=== PATIENT | male | born 1980 | race Caucasian/White ===

== ENCOUNTER 2025-02-17 20:49 | Emergency (ER) | payer OTHER, SELFPAY ==
[2025-02-17 21:47] VITALS: BP 167/114; PULSE 106; RESP 16; TEMP 36.5; O2SAT 98; BMI 23.6
--- OUTSIDE RECORDS SUMMARY | 2025-02-17 22:14 | XMS_ITS | Clinical Summary ---
Author Organization [facility] Address [address] 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 08/08/2021 Active levETIRAcetam (Keppra) 500 MG tablet Take 500 mg by mouth twice a day. 03/01/2017 Active albuterol 108 (90 Base) MCG/ACT inhaler Inhale 2 puffs if needed. 09/27/2018 Active gabapentin (Neurontin) 800 MG tablet Take 800 mg by mouth 3 (three) times a day. 09/06/2021 Active nicotine (Nicoderm CQ) 21 MG/24HR patch Place 1 patch on the skin 1 (one) time each day at the same time. 30 patch 10/13/2021 Active nicotine polacrilex (Commit) 4 MG lozenge Dissolve 1 lozenge (4 mg total) in the mouth every 2 (two) hours if needed for smoking cessation. 100 lozenge 10/13/2021 Active hydroCHLOROthia zide (HYDRODiuril) 25 MG tablet Take 25 mg by mouth 1 (one) time each day. Active gabapentin (Neurontin) 100 MG capsule Take 1 capsule (100 mg total) by mouth 3 (three) times a day. 42 capsule 10/18/2021 Active methocarbamol (Robaxin) 750 MG tablet Take 1 tablet (750 mg total) by mouth every 6 (six) hours if needed for muscle spasms. 50 tablet 10/18/2021 Active senna-docusate sodium (Senokot-S) 8.6-50 MG tablet Take 1 tablet by mouth 2 (two) times a day. 28 tablet 10/18/2021 Active amitriptyline (Elavil) 50 MG tablet Take 1 tablet (50 mg total) by mouth every night. 30 tablet 1 12/29/2021 Active Active Problems Problem Noted Date Diagnosed Date Obesity (BMI 35.0-39.9 without comorbidity) 09/30 Achilles tendon rupture, right, initial encounte r 10/13/2021 Overview (10/13/2021): Added automatically from request for surgery [id number] Family History Medical History Relation Name Comments Melanoma Mother Relation Name Status Comments Mother Social History Tobacco Use Types Packs/Day Years Used Date Smoking Tobacco: Every Day Smokeless Tobacco: Never Alcohol Use Standard Drinks/Week Comments No 0 (1 standard drink = 0.6 oz pur e alcohol) PHQ-2 Answer Date Recorded Patient Health Questionnaire-2 Score 0 10/13/2021 Sex and Gender Information Value Date Recorded Sex Assigned at Not on file Legal Sex Male 6:38 PM EDT Gender Identity Not on file Sexual Orientation Not on file Last Filed Vital Signs Vital Sign Reading Time Taken Comments Blood Pressure 133/80 06/24/2024 12:07 PM EST Pulse 89 06/24/2024 12:07 PM EST Temperature 36.3 C (97.4 F) 06/24/2024 12:07 PM EST Respiratory Rate 14 06/24/2024 12:07 PM EST Oxygen Saturation 97% 06/24/2024 12:07 PM EST Inhaled Oxygen Concentration - - Weight 114 kg (251 lb) 06/24/2024 10:47 AM EST Height 175.3 cm (5' 9 ) 06/24/2024 10:47 AM EST Body Mass Index 37.07 06/24/2024 10:47 AM EST Plan of Treatment Health Maintenance Due Date Last Done Comments [facility]-HIV Screening 1979 [facility]-Hepatitis C Screening 1979 [facility]-/Child/Adol SDOH Screenings 1979 [facility]-Obesity Intervention 12/27/1985 [facility]-Varicella Vaccines (1 of 2 - 13+ 2-dose series) 12/27/1992 [facility]- SDOH Screenings 12/27/1997 [facility]-Adult SDOH Screenings 12/27/1997 [facility]-Hepatitis B Vaccines (1 of 3 - 19+ 3-dose series) 12/27/1998 HPV Vaccines (1 - 3-dose SCD M series) 12/27/2006 [facility]-Depression Screening 10/13/2022 10/13/2021 [id number] Vaccine (2 - season) 2024 11/09/2020 CT Colonography 12/27/2024 Colonoscopy 12/27/2024 FIT-DNA 12/27/2024 FIT 12/27/2024 FOBT 12/27/2024 Sigmoidoscopy 12/27/2024 [facility]-Colorectal Cancer Screening 12/27/2024 [facility]-DTaP,Tdap,and Td Vaccine s (3 - Td or Tdap) 02/02/2025 02/02/2015, 09/08/1996 [facility]-Influenza Vaccine (#1) 03/02/202504/29, 05/31/2012 [facility]-Zoster Vaccines (1 of 2) 12/27/2029 [facility]-HIB Vaccines Aged Out No longer e ligible based on patient's age to complete this topic [facility]-Hepatitis A Vaccines Aged Out No longer eligible based on patient's age to complete this topic [facility]-IPV Vaccines Aged Out No longer e ligible based on patient's age to complete this topic [facility]-Pneumococcal Vaccine: Pediatrics (0 to 5 Years) and At-Risk Patients (6 to 49 Years) Aged Out No longer eligible b ased on patient's age to complete this topic [facility]-Rotavirus Vaccines Aged Out No lo nger eligible based on patient's age to complete this topic Medical Devices Implanted Type Area Dermatology Specialist Device Identifier Shelf Expiration Date Model / Serial / Lot Implant Scaffold Large - [id number] Implanted:Qty: 1 on 10/18/2021 by Angelo Gayle MD at [facility] Right: Foot [employer] [facility] ([id number] 03/02/2024 [id number] / / [id number] Insurance NA [employer] MEDICAID Care Teams Trailer Truck Driver Relationship Specialty Start Date End Date Chilo Navarro MD [address] [place] [address] PCP - General 11/03/21
--- OUTSIDE RECORDS SUMMARY | 2025-02-17 22:14 | XMS_ITS | Clinical Summary ---
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 Phone Unavailable Primary Care Provider Unavailabl e Allergies No known active allergies Medications diclofenac (VOLTAREN) 75 MG EC tablet Take 1 tablet by mouth 2 times daily for 7 days 14 tablet 09/22/2024 Active Social History Tobacco Use Types Packs/Day Years Used Date Smoking Tobacco: Every Day Cigarettes Tobacco Cessation:Ready to Q uit: Not Asked; Counseling Given: Not Answered Sex and Gender Information Value Date Recorded Sex Assigned at Not on file Legal Sex Male 8:55 AM EDT Gender Identity Not on file Sexual Orientation Not on file Last Filed Vital Signs Vital Sign Reading Time Taken Comments Blood Pressure 128/78 09/22/2024 9:07 AM EDT Pulse 95 09/22/2024 9:07 AM EDT Temperature 36.4 C (97.6 F) 09/22/2024 9:07 AM EDT Respiratory Rate 16 09/22/2024 9:07 AM EDT Oxygen Saturation 96% 09/22/2024 9:07 AM EDT Inhaled Oxygen Concentration - - Weight 123.7 kg (272 lb 9.6 oz) 09/22/2024 9:07 AM EDT Height 172.7 cm (5' 8 ) 09/22/2024 9:07 AM EDT Body Mass Index 41.45 09/22/2024 9:07 AM EDT Plan of Treatment Health Maintenance Due Date Last Done Comments Depression Screen 1991 Varicella vaccine (1 of 2 - 13+ 2-dose series) 12/27/1992 HIV screen 12/27/1994 Hepatitis C screen 12/27/1997 DTaP/Tdap/Td vaccine (1 - Tdap) 12/27/1998 Hepatitis B vaccine (1 of 3 - 19+ 3-dose series) 12/27/1998 Pneumococcal 0-49 years Vacc ine (1 of 2 - PCV) 12/27/1998 Diabetes screen 12/27/2014 Lipids 2019 COVID-19 Vaccine (1 - 2023-2 5 season) 2024 Colonoscopy 12/27/2024 Colorectal Cancer Screen 12/27/2024 FIT/FOBT: Average risk 12/27/2024 Fecal-DNA (Cologuard): Average risk 12/27/2024 Sigmoidoscopy/CT colonography 12/27/2024 Flu vaccine (#1) 01/30/2025 HPV vaccine (No Doses Required) Completed Hepatitis A vaccine Aged Out No longe r eligible based on patient's age to complete this topic Hib vaccine Aged Out No longer eligi ble based on patient's age to complete this topic Meningococcal (ACWY) vaccine Aged Out No longer eligible based on patient's age to complete this topic Meningococcal B vaccine Aged Out No l onger eligible based on patient's age to complete this topic Polio vaccine Aged Out No longer elig ible based on patient's age to complete this topic Insurance [employer]
[2025-02-17 22:56] LABS: Hematocrit 34.8 % (42.0-52.0); Hemoglobin 11.6 g/dL (14.1-18.0); Immature Granulocytes % 2.2 %; Mean Corpuscular HGB Conc 33.3 g/dL (31.8-35.4); Mean Corpuscular Hemoglobin 31.5 pg (27.0-31.2); Mean Corpuscular Volume 94.6 fl (80-94); Nucleated Red Blood Cells % 0 %; Platelet Count 348 K/mm3 (142-424); Red Blood Count 3.68 M/mm3 (4.60-6.20); Red Cell Distribution Width-SD 46.4 fL; White Blood Count 15.1 K/mm3 (4.8-10.8)
[2025-02-17 22:59] VITALS: PULSE 101; O2SAT 100
[2025-02-17 23:00] VITALS: PULSE 89; O2SAT 98
[2025-02-17 23:18] LABS: Alanine Aminotransferase 42 U/L (12-78); Albumin Level 3.9 g/dl (3.5-5.0); Albumin/Globulin Ratio 1.1 (1.1-1.8); Alkaline Phosphatase 61 U/L (38-126); Anion Gap 9.8 mEq/L (5-15); Aspartate Amino Transferase 36 U/L (17-59); Blood Urea Nitrogen 11 mg/dl (9-20); Calcium 8.9 mg/dl (8.4-10.2); Carbon Dioxide 27 mmol/L (22.0-30.0); Chloride 108 mmol/L (98-107); Creatinine Clearance Estimated 84 mL/min (50-200); Creatinine,Serum 1.10 mg/dl (0.66-1.25); Estimated Glomerular Filt Rate 72 ml/min (>60); GFR (African American) 88 ML/MIN (>60); Globulin 3.4 g/dL (1.3-3.2); Glucose 87 mg/dl (74-100); Potassium 3.8 mmoL/L (3.5-5.1); Sodium 141 mmol/L (136-145); Total Protein,Serum 7.3 g/dl (6.3-8.2)
[2025-02-17 23:34] LABS: Bilirubin,Total 0.1 mg/dl (0.2-1.3)
[2025-02-17] MEDS: DOXYCYCLINE HYCL 100 MG TABLET PO (23:59)
[2025-02-18 00:07] VITALS: BP 154/104; PULSE 93; RESP 16; TEMP 36.8; O2SAT 99
--- NOTE | 2025-02-18 00:10 | HMH.EDGENADL ---
Discharge Plan Disposition Patient Disposition: Left Against Medical Advice Referrals Follow up/Referrals: Jono Kenney PA [Primary Care Provider, Medical] - See instructions Clinical Impressions Clinical Impression: Left against medical advice Instructions Patient Instructions: DI for Laceration Repair Print Language Print Language: Wallisian Discharge ED Provider: Jared Irizarry General Adult HPI General Chief complaint: Wound/Laceration Stated complaint: Incision from shooting drugs with drainage Time Seen by Provider: 02/17/25 22:52 Mode of Arrival: Ambulatory Source of Information: Patient Description of Symptoms (Recalled from ER Triage Doc. by RN): Patient was seen [facility] for a wound he got when shooting up meth; said dressing hasn't been changed since sunday; would like it checked out; has not started ordered antibiotics yet History of Present Illness HPI narrative: Patient states that over a week ago, he was injecting meth into his left arm and missed. He went to [facility] 3 days ago and had an abscess drained on his left forearm and was admitted for IV antibiotics. He states that he was discharged earlier today but was told that he would need to follow-up with the surgeon. He was prescribed doxycycline but has not filled it yet. He states that the wound has been packed but appears grossly infected with stuff draining out of it. He denies any fevers but is worried the wound is still infected. Related Data Allergies Allergy/AdvReac Type Severity Reaction Status Date / Time No Known Allergies Allergy Verified 02/17/25 21:51 [facility] Disclaimer: The information contained in this section may have been updated after the patient was seen, as this information can be updated by other users. Social History Smoking Status: Current every day smoker alcohol intake: former current occupational status: employed Travel in the last 8 weeks?: None ROS Obtained: Yes Systems reviewed as appropriate & no additional complaints except as documented Physical Exam General General appearance: alert, in no apparent distress and anxious Head Head exam: atraumatic Eye Eye exam: Present normal appearance ENT ENT exam: Present normal external ear exam Neck Neck exam: Present full ROM Chest Chest inspection: Present symmetric chest wall rise Respiratory Respiratory exam: Present normal lung sounds bilaterally; Absent respiratory distress Cardiovascular Cardiovascular exam: Present regular rate and normal rhythm Abdominal Exam Abdominal exam: Present soft; Absent tenderness or guarding exam: Present deferred Extremities Exam Extremities exam: Present normal inspection Expanded Upper Extremity Exam Left: L/R Arms Bottom View:  1. Open incision, granulation tissue and purulent drainage with surrounding erythema and tenderness Back Exam Back exam: Present normal inspection Neurological Exam Neurological exam: Present alert and oriented X3 Psychiatric Psychiatric exam: Present normal affect Skin Skin exam: Present warm and dry Medical Decision Making Medical Records Screening: Per USPSTF and CDC recommendations, given the prevalence of disease in our region, it is our hospital?s policy to screen for HIV and viral Hepatitis for all patients aged 18 and over and those with ongoing risk factors. Sergo Inquiry Pt receiving controlled substance: No Vital Signs: 02/17/25 21:47 02/17/25 22:59 02/17/25 23:00 Temperature 97.7 F Temperature Source Oral Pulse Rate 101 H 89 Pulse Rate [Right Radial] 106 H Respiratory Rate 16 Blood Pressure Blood Pressure [Right Arm] 167/114 H Blood Pressure Mean [Right Arm] 131 Blood Pressure Source [Right Arm] Automatic Cuff Blood Pressure Position [Right Arm] Sitting 02 Sat by Pulse Oximetry 98 100 98 Oxygen Delivery Method Room Air 02/18/25 00:07 Temperature 98.2 F Temperature Source Pulse Rate 93 H Pulse Rate [Right Radial] Respiratory Rate 16 Blood Pressure 154/104 H Blood Pressure [Right Arm] Blood Pressure Mean [Right Arm] Blood Pressure Source [Right Arm] Blood Pressure Position [Right Arm] 02 Sat by Pulse Oximetry Oxygen Delivery Method Room Air Lab Data Lab Results 02/17/25 22:43: WBC 15.1 H, RBC 3.68 L, Hgb 11.6 L, Hct 34.8 L, MCV 94.6 H, MCH 31.5 H, MCHC 33.3, RDW 13.4, Plt Count 348, MPV 9.1, Neut % (Auto) 66.7, Lymph % (Auto) 24.4, Bladen % (Auto) 5.7, Eos % (Auto) 0.6, Baso % (Auto) 0.4, Neut # (Auto) 10.1 H, Lymph # (Auto) 3.7, Bladen # (Auto) 0.9, Eos # (Auto) 0.1, Baso # (Auto) 0.1, Sodium 141, Potassium 3.8, Chloride 108 H, Carbon Dioxide 27, Anion Gap 9.8, BUN 11, Creatinine 1.10, Estimated Creat Clear 84, Estimated GFR 72, Est GFR ( Amer) 88, Glucose 87, Lactate 1.2, Calcium 8.9, Total Bilirubin 0.1 L, AST 36, ALT 42, Alkaline Phosphatase 61, Total Protein 7.3, Albumin 3.9, Globulin 3.4 H, Albumin/Globulin Ratio 1.1 02/17/25 22:43 02/17/25 22:43 Orders (Tests/Meds): ED MEDICATIONS Discontinued Medications Generic Name Dose Route Start Last Admin Trade Name Tyson PRN Reason Stop Dose Admin Doxycycline Hyclate 100 mg 02/17/25 23:55 02/17/25 23:59 Doxycycline Hycl 100 Mg Tablet PO 02/17/25 23:56 100 mg ONCE ONE Administration Miscellaneous 1 each 02/17/25 23:15 Vancomycin Consult Request NOTAPPLIC 03/19/25 23:14 CONSULT PHARMACY BK ORDERS Category Date Time Status Consult Conference Assistant [CONS] Routine Cons 02/17/25 22:33 Active Complete Blood Count Auto Diff Stat Lab 02/17/25 22:43 Completed Comprehensive Metabolic Panel Stat Lab 02/17/25 22:43 Completed Lactic Acid Stat Lab 02/17/25 22:43 Completed Blood Culture Stat Micro 02/17/25 21:54 Ordered Medical Decision Narrative: Patient states that over a week ago, he was injecting meth into his left arm and missed. He went to [facility] 3 days ago and had an abscess drained on his left forearm and was admitted for IV antibiotics. He states that he was discharged earlier today but was told that he would need to follow-up with the surgeon. He was prescribed doxycycline but has not filled it yet. He states that the wound has been packed but appears grossly infected with stuff draining out of it. He denies any fevers but is worried the wound is still infected. On arrival, patient is hypertensive, tachycardic, afebrile, maintaining appropriate oxygen saturation on room air. Physical exam, as stated above, revealed an anxious appearing male in no respiratory distress. He is tachycardic. Left upper extremity shows an open incision with iodoform gauze within the wound. There does appear to be serosanguineous discharge emanating from the wound with surrounding erythema. The laceration itself measures approximately 4 cm in a vertical fashion along the volar forearm. The iodoform gauze was removed and revealed some mild purulence within the wound itself. This area is tender to touch. Differential diagnosis includes, but is not limited to: Sepsis, wound infection, cellulitis, abscess, among others. The most morbid conditions were considered and workup was based on these. Workup in the emergency department included: CT left arm with contrast, CBC, CMP, blood culture, lactic acid. Due to concern for sepsis, vancomycin was ordered. I discussed with patient that given his tachycardia in the setting of this infection, there is concern for sepsis he was initially agreeable to pursue CT imaging and IV antibiotics, however I was called back into the room he stated that he was just notified that his father is hospitalized at [facility] due to lung cancer and pneumonia and he does not wish to stay and would like to leave at this time. I discussed with him at length that there is concern he is septic secondary to his infection that will require continued IV antibiotics and possibly surgery depending on results of CT scan and it is highly recommended that he stay for completion of his workup and treatment and that the risk of leaving includes worsening infection to the arm, bloodstream infection and potentially . He was able to reiterate back to me that he is aware that he could possibly be septic and that this could kill him but notes that the only people that he has in his life are his significant other and his father and he wants to be with his father at this time. Given that he has not had any of antibiotics yet and is wanting to leave AGAINST MEDICAL ADVICE, will administer 100 mg of oral doxycycline. Patient did not receive any IV vancomycin prior to leaving the emergency department. He was given strict return precautions and demonstrated understanding. He then left the emergency department AGAINST MEDICAL ADVICE. Critical Care Critical Care Time Critical Care Time: No
--- NOTE | 2025-02-18 10:22 | PEERSUPPORT ---
Peer Support Note Patient Information Patient Information: DOS: 02/18/2025 Attempt to make contact with pt. No answer, left voicmail for pt to return phonecall.
== END 2025-02-18 00:11 | disposition left against medical advice (07) ==
LOC: ER 22:12
PROVIDERS: Emergency Provider Student in an Organized Health Care Education/Training Program; PCP Student in an Organized Health Care Education/Training Program
DX: L02.414 Cutaneous abscess of left upper limb (principal); R00.0 Tachycardia, unspecified; F17.210 Nicotine dependence, cigarettes, uncomplicated; F19.90 Other psychoactive substance use, unspecified, uncomplicated
CPT/HCPCS: 80053; 83605; 85025; 87040; 99283

== ENCOUNTER 2025-02-27 04:48 | Emergency (ER) | payer OTHER, SELFPAY ==
--- NOTE | 2025-02-27 04:55 | HMH.EDGENADL ---
Discharge Plan Disposition Patient Disposition: Xfer Other Condition: Good Prescriptions Prescriptions: New levetiracetam 1,000 mg tablet 1,000 mg PO BID 60 Days Qty: 120 0RF omeprazole 40 mg capsule,delayed release(DR/EC) 40 mg PO DAILY 56 Days Qty: 56 0RF clindamycin HCl [Cleocin HCl] 300 mg capsule 300 mg PO Q6H 5 Days Qty: 20 0RF Referrals Follow up/Referrals: Provider,Referral, MD [Primary Care Provider, Medical] - See instructions Activity Restrictions/Add. Instructions Additional Instructions/Restrictions: I have prescribed Clindamycin 300 mg 4 times daily for the next 5 days. I have also prescribed Keppra to be taken 1000 mg twice daily. I have also sent your omeprazole to the pharmacy. If you have any new or worsening symptoms please return. Clinical Impressions Clinical Impression: Drug use disorder, Encounter for wound re-check Print Language Print Language: Estonian Discharge ED Provider: Jay Soares General Adult HPI <Jay Soares MD - Last Filed: 02/27/25 06:48> General Chief complaint: Wound/Laceration Stated complaint: laceration L arm Time Seen by Provider: 02/27/25 04:55 History of Present Illness HPI narrative: 44-year-old male with history of epilepsy on Keppra, GERD, IV drug addiction presents for wound check and for rehab placement. He reports that he has an abscess that was lanced and he has been taking antibiotics for on his left arm. It is significantly improving, no longer painful, just itchy. Patient said he spoke with Ava Davidson, our social work/specialist employee labor relations, and he would like to go to rehab. He denies any chest pain abdominal pain shortness of breath or other symptoms at this time. He reports that he has not been taking his Keppra as prescribed. He is currently taking Keflex for his wound. Related Data Previous Rx's ?Medication ?Instructions ?Recorded clindamycin HCl 300 mg capsule 300 mg PO Q6H 5 days #20 caps 02/27/25 (Cleocin HCl) levetiracetam 1,000 mg tablet 1,000 mg PO BID 60 days #120 tabs 02/27/25 omeprazole 40 mg capsule,delayed 40 mg PO DAILY 8 weeks #56 caps 02/27/25 release Allergies Allergy/AdvReac Type Severity Reaction Status Date / Time No Known Allergies Allergy Verified 02/17/25 21:51 PFSH <Jay Soares MD - Last Filed: 02/27/25 06:48> [facility] Disclaimer: The information contained in this section may have been updated after the patient was seen, as this information can be updated by other users. Social History (Updated 02/18/25 @ 13:25 by Jared Irizarry MD) Smoking Status: Current every day smoker alcohol intake: former current occupational status: employed Travel in the last 8 weeks?: None Have you lived/traveled outside US in past 30 days?: No Contact w/someone who lives/traveled outside US past 30 days?: No Exposure to someone with infectious disease in past 14 days?: No Do you have a fever (greater than 100.4 F or 38 C)?: No Have you tested positive for COVID-19?: No Exposed to someone with COVID-19 in past 14 days?: No Do you have a sore throat?: No Do you have a cough?: No Do you have any weakness?: No Do you have any diarrhea?: No Are you experiencing any unusual bleeding?: No Do you have any muscle aches/pain?: No Do you have any abdominal pain?: No Are you experiencing loss of taste or smell?: No <Jay Soares MD - Last Filed: 02/27/25 06:48> ROS Obtained: Yes All systems reviewed & no additional complaints except as documented Physical Exam <Jay Soares MD - Last Filed: 02/27/25 06:48> General General appearance: alert and in no apparent distress Head Head exam: atraumatic and normocephalic Eye Eye exam: Present normal appearance, PERRL and EOMI ENT ENT exam: Present normal oropharynx and normal external ear exam Neck Neck exam: Present normal inspection and full ROM Chest Chest inspection: Present normal inspection and symmetric chest wall rise; Absent tenderness Respiratory Respiratory exam: Present normal lung sounds bilaterally; Absent respiratory distress Cardiovascular Cardiovascular exam: Present regular rate and normal rhythm Abdominal Exam Abdominal exam: Present soft; Absent distention, tenderness or guarding Extremities Exam Extremities exam: Present normal inspection; Absent edema or joint swelling Back Exam Back exam: Present normal inspection; Absent tenderness Neurological Exam Neurological exam: Present alert and oriented X3; Absent motor sensory deficit Psychiatric Psychiatric exam: Present normal affect and normal mood Skin Skin exam: Present warm, dry, normal color and other (Scabbed healing incision in the left forearm. No surrounding erythema or induration, no fluctuance, no evidence of infection) Lymphatic Lymphatic Findings: no adenopathy Medical Decision Making <Jay Soares MD - Last Filed: 02/27/25 06:48> Medical Records Medical records reviewed: Yes I reviewed the patient's medical records. Screening: Per USPSTF and CDC recommendations, given the prevalence of disease in our region, it is our hospital?s policy to screen for HIV and viral Hepatitis for all patients aged 18 and over and those with ongoing risk factors. Sergo Inquiry Pt receiving controlled substance: No Sergo was queried for this patient: No Vital Signs: 02/27/25 04:56 02/27/25 04:57 Temperature 98.0 F Temperature Source Oral Pulse Rate 93 H Pulse Rate [Right Radial] 89 Respiratory Rate 20 Blood Pressure 140/90 Blood Pressure [Right Arm] 140/90 Blood Pressure Mean [Right Arm] 106 Blood Pressure Source [Right Arm] Automatic Cuff Blood Pressure Position [Right Arm] Sitting 02 Sat by Pulse Oximetry 96 98 Oxygen Delivery Method Room Air Lab Data Lab results reviewed: Yes I reviewed the patient's lab results. Orders (Tests/Meds): ED MEDICATIONS Discontinued Medications Generic Name Dose Route Start Last Admin Trade Name Thomasq PRN Reason Stop Dose Admin Levetiracetam 1,000 mg 02/27/25 05:05 02/27/25 05:20 Levetiracetam 500 Mg Tablet PO 02/27/25 05:06 1,000 mg ONCE ONE Administration Nicotine 21 mg 02/27/25 07:33 02/27/25 07:39 Nicotine 21mg/24hr Patch TD 02/27/25 07:34 21 mg ONCE ONE Administration Pantoprazole Sodium 40 mg 02/27/25 05:02 02/27/25 05:20 Pantoprazole 40mg Tablet PO 02/27/25 05:03 40 mg ONCE ONE Administration ORDERS Category Date Time Status Consult Logging Truck Driver [CONS] Routine Cons 02/27/25 04:53 Active HIV Combo Stat Lab 02/27/25 05:01 Ordered Hepatitis C Ab Qual. W/ RFX Stat Lab 02/27/25 05:01 Ordered Medical Decision Narrative: 44-year-old male with history of epilepsy, IV drug use presents for wound check and possible drug rehab placement. History was obtained via interactive discussion with patient. On arrival, patient is [afebrile, hemodynamically stable, satting appropriately, alert, oriented x4, GCS 15], moving all extremities spontaneously. Full physical exam performed and significant for healing abscess site, no evidence of current infection. Patient was given his home Keppra and Prilosec. We are waiting our specialist employee labor relations for further guidance. At this time care handed off to oncoming physician. <Chris Greene, DO - Last Filed: 02/27/25 09:34> Vital Signs: 02/27/25 04:56 02/27/25 04:57 Temperature 98.0 F Temperature Source Oral Pulse Rate 93 H Pulse Rate [Right Radial] 89 Respiratory Rate 20 Blood Pressure 140/90 Blood Pressure [Right Arm] 140/90 Blood Pressure Mean [Right Arm] 106 Blood Pressure Source [Right Arm] Automatic Cuff Blood Pressure Position [Right Arm] Sitting 02 Sat by Pulse Oximetry 96 98 Oxygen Delivery Method Room Air Orders (Tests/Meds): ED MEDICATIONS Discontinued Medications Generic Name Dose Route Start Last Admin Trade Name Freq PRN Reason Stop Dose Admin Levetiracetam 1,000 mg 02/27/25 05:05 02/27/25 05:20 Levetiracetam 500 Mg Tablet PO 02/27/25 05:06 1,000 mg ONCE ONE Administration Nicotine 21 mg 02/27/25 07:33 02/27/25 07:39 Nicotine 21mg/24hr Patch TD 02/27/25 07:34 21 mg ONCE ONE Administration Pantoprazole Sodium 40 mg 02/27/25 05:02 02/27/25 05:20 Pantoprazole 40mg Tablet PO 02/27/25 05:03 40 mg ONCE ONE Administration ORDERS Category Date Time Status Consult Logging Truck Driver [CONS] Routine Cons 02/27/25 04:53 Active HIV Combo Stat Lab 02/27/25 05:01 Ordered Hepatitis C Ab Qual. W/ RFX Stat Lab 02/27/25 05:01 Ordered Medical Decision Narrative: 44-year-old male with history of epilepsy, IV drug use presents for wound check and possible drug rehab placement. History was obtained via interactive discussion with patient. On arrival, patient is [afebrile, hemodynamically stable, satting appropriately, alert, oriented x4, GCS 15], moving all extremities spontaneously. Full physical exam performed and significant for healing abscess site, no evidence of current infection. Patient was given his home Keppra and Prilosec. We are waiting our specialist employee labor relations for further guidance. At this time care handed off to oncoming physician. Transfer of care Dr. Greene At the time of shift changes patient's disposition was pending placement to a rehab facility. We were able to obtain placement in a rehab facility in [place]. I have sent the patient's Keppra and Prilosec to [facility] however in [place]. The patient also voiced concern over a wound that he has on his left upper extremity. He states that he did not bring his clindamycin with him but he was post to take clindamycin for the next 5 days. I have sent this to the pharmacy for the patient as well. The wound does look relatively well though, and I have very low suspicion for any kind of rapidly progressing infection or deep space infection. The patient was ultimately transferred to the rehab facility in stable condition. Procedures <Jay Soares MD - Last Filed: 02/27/25 06:48> Risk/Benefits of Procedure(s) Were Explained: Yes Critical Care <Jay Soares MD - Last Filed: 02/27/25 06:48> Critical Care Time Critical Care Time: No
[2025-02-27 04:56] VITALS: BP 140/90; PULSE 93; O2SAT 96
[2025-02-27 04:57] VITALS: BP 140/90; PULSE 89; RESP 20; TEMP 36.7; O2SAT 98; BMI 34.0
--- NOTE | 2025-02-27 05:01 | PC.NURSE ---
Wound to left arm scabbed over and healing. No dressing in place no drainage noted Skin pink warm and dry Resp full and easy Speech clear and appropriate. Family at bedside
--- OUTSIDE RECORDS SUMMARY | 2025-02-27 05:02 | XMS_ITS | Clinical Summary ---
Author Organization [facility] Address [address], [address] [place] [address] Care Team Providers Care Director Of Application Development Name Role Phone Unavailable Primary Care Provider [...]
--- OUTSIDE RECORDS SUMMARY | 2025-02-27 05:02 | XMS_ITS | Clinical Summary ---
Author Organization [facility] Address [address] [place] [address] Care Team Providers Care Gate Services Supervisor Name Role Phone Chilo Navarro MD Primary [...] (10/13/2021): Added automatically from request for surgery [id number] Family History Medical History Relation Name Comments [...] M series) 12/27/2006 [facility]-Depression Screening 10/13/2022 10/13/2021 [id number] Vaccine (2 - season) 2024 11/09/2020 CT [...] this topic Medical Devices Implanted Type Area Pipe Bowls Paint Trimmer Device Identifier Shelf Expiration Date Model / Serial / Lot Implant Scaffold Large - [id number] Implanted:Qty: 1 on 10/18/2021 by Angelo Gayle MD at [facility] Right: Foot [facility] ([employer])-[id number] 03/02/2024 [id number] / / [id number] Insurance NA [employer] MED[employer] Care Teams Gate Services Supervisor Relationship Specialty Start Date End Date Chilo Navarro MD [address] [place] [address] PCP - General 11/03/21
[2025-02-27] MEDS: PANTOPRAZOLE 40MG TABLET 40 MG PO (05:20)
--- NOTE | 2025-02-27 05:23 | PC.NURSE ---
Pt resting awaiting peer director sales support member
--- NOTE | 2025-02-27 06:24 | PC.NURSE ---
Peer suuport staff member here to help client with rehab placement
--- NOTE | 2025-02-27 07:01 | PC.NURSE ---
Report given to Lashell TELLO
[2025-02-27] MEDS: NICOTINE 21MG/24HR PATCH 21 MG TD (07:39)
--- NOTE | 2025-02-27 07:40 | PC.NURSE ---
none of patients assessment is done after being here for 3 hours
--- NOTE | 2025-02-27 09:12 | PEERSUPPORT ---
Peer Support Note Patient Information Patient Information: DOS: 02/27/2025 ? Drug(s) of Choice: Methamphetamine IV ? Last Use: 02/26/2025 @11:30 pm ? Use Hx: Started using meth at the age of 17, progressed to heroin IV. Has not used heroin or any illicit opiates by choice in over a year. ? Previous MAT/MOUD: [facility] - October 2024 ? Current MAT/MOUD: None ? Desire for MAT/MOUD: Interested in MAT, hoping to continue suboxone through inpatient treatment at [facility] [place]. ? Previous Treatment: [facility]- [place], [place] 2x in past year? ? Support System: Girlfriend- Niharika Mother and father ? Legal Issues: SO Registration/[facility]? ? Insurance: [employer] ? Harm reduction: -Connection to Bridge Peer support -Education on Substance Use Disorder/Risk involved with Continued use -Treatment- transfer to [facility] for inpatient treatment -Intake Assessment- completed and approved for admission. -Transportation provided by [facility] ? Motivation for Change: Pt motivated to commit to inpatient treatment at [facility] in [place], [place]. His Dad has asked him to go to treatment so he doesn?t before he does with lung cancer and wants to see his son healthy. This has weighed on him and he is ready to go try again. He cares for his girlfriend and doesn?t want her to leave him, but knows if he doesn?t make changes that will happen. ? Plan of Action: -Direct transfer to [facility]- [place], [place] Location -Ps will follow accordingly with completion of program.
--- NOTE | 2025-02-27 09:30 | PC.NURSE ---
gerri states [facility] will be here for transport at 10
[2025-02-27 10:09] VITALS: BP 136/86; PULSE 88; RESP 18; TEMP 36.7; O2SAT 99
== END 2025-02-27 10:11 | disposition other institution (70) ==
PROVIDERS: Emergency Provider Emergency Medicine
DX: F19.90 Other psychoactive substance use, unspecified, uncomplicated (principal); F17.200 Nicotine dependence, unspecified, uncomplicated; Z51.89 Encounter for other specified aftercare
CPT/HCPCS: 99283